=== PATIENT | male | born 1950 | race Caucasian/White ===

== ENCOUNTER 2018-06-25 05:24 | Inpatient (IN) | payer MEDICARE, BC ==
[~2018-06-25] VITALS: Ht 182.9 cm; Wt 105.3 kg
[~2018-06-25 05:24] MED LIST: FLUT16SP18 NS; MIRT15TA8 PO; PANT40TA4 PO; SODI104S3 NS; TAMS0.4C32 PO; TEMA15CA PO
[2018-06-25 05:50] LABS: BASOPHILS % (AUTO) 0.6 % (0-1); EOSINOPHILS # (AUTO) 0.1 X10'3 (0-0.9); EOSINOPHILS % (AUTO) 1.5 % (0-6); HEMATOCRIT 42.3 % (42.0-52.0); HEMOGLOBIN 14.4 g/dl (14.0-17.9); LYMPHOCYTES # (AUTO) 1.2 X10'3 (1.1-4.8); LYMPHOCYTES % (AUTO) 26.7 % (21-51); MEAN CORPUSCULAR HEMOGLOBIN 31.1 PG (27.0-31.0); MEAN CORPUSCULAR HGB CONC 34.1 g/dL (33.0-36.5); MEAN CORPUSCULAR VOLUME 91.3 FL (78-98); MEAN PLATELET VOLUME 8.3 FL (7.4-10.4); MONOCYTES # (AUTO) 0.5 X10'3 (0-0.9); MONOCYTES % (AUTO) 12.1 % (2-12); NEUTROPHILS # (AUTO) 2.6 X10'3 (1.8-7.7); NEUTROPHILS % (AUTO) 59.1 % (42-75); PLATELET COUNT 196 X10'3 (140-440); RED BLOOD COUNT 4.63 X10'6 (4.70-6.10); RED CELL DISTRIBUTION WIDTH 14.1 % (11.5-14.5); WHITE BLOOD COUNT 4.4 X10'3 (4.5-11.0)
[2018-06-25 06:06] LABS: ANION GAP 8 (8-16); BLOOD UREA NITROGEN 21 MG/DL (7-18); BUN/CREATININE RATIO 17.4 (5.4-32.0); CHLORIDE 109 MMOL/L (99-107); CREATININE 1.21 MG/DL (0.60-1.10); GLUCOSE 107 MG/DL (70-104); POTASSIUM 3.9 MMOL/L (3.5-5.1); SODIUM 143 MMOL/L (135-145); TOTAL CARBON DIOXIDE 25.6 MMOL/L (24-32)
[2018-06-25 06:07] LABS: ALANINE AMINOTRANSFERASE 22 U/L (12-78); ALBUMIN 3.4 G/DL (3.4-5.0); ALBUMIN/GLOBULIN RATIO 1.4 (1.1-1.5); ALKALINE PHOSPHATASE 42 IU/L (46-116); ASPARTATE AMINO TRANSFERASE 16 U/L (10-37); BILIRUBIN,TOTAL 0.2 MG/DL (0.1-1.0); CALCIUM 8.9 MG/DL (8.5-10.1); TOTAL PROTEIN 5.8 G/DL (6.4-8.2); eGFR 60 ML/MIN
[2018-06-25 06:08] LABS: PROTHROMBIN TIME 10.2 SECONDS (9.0-12.0)
[2018-06-25 06:09] LABS: PARTIAL THROMBOPLASTIN TIME 31 SECONDS (22-32)
[2018-06-25] MEDS ORDERED: diltiazem-D5W 125mg/125ml 125 ML IV ONE (06:19)
[2018-06-25] MEDS ORDERED: diltiazem 5mg/ml 5ml inj. IV ONE ×2 (06:20→07:00)
[2018-06-25] MEDS ORDERED: enoxaparin 100mg/ml syringe SUBCUT ONE (06:25)
[2018-06-25] MEDS ORDERED: PRE1T PO (08:16)
[2018-06-25] MEDS ORDERED: GABA-532 PO (08:16)
[2018-06-25] MEDS ORDERED: PRED5TAB49 PO (08:16)
[2018-06-25] MEDS ORDERED: aspirin 81mg tab.chew PO STA (10:48)
[2018-06-25] MEDS ORDERED: ondansetron/PF 4mg/2ml inj IV PRN (10:50)
[2018-06-25] MEDS ORDERED: diphenhydrAMINE 25mg capsule PO PRN (10:50)
[2018-06-25] MEDS ORDERED: magnesium hydroxide 30ml (MOM) UD suspension PO PRN (10:50)
[2018-06-25] MEDS ORDERED: magnesium 4gm in 100ml NS 100 ML IV PRN (10:50)
[2018-06-25] MEDS: enoxaparin 100mg/ml syringe SUBCUT SCH ×2 (10:50→20:01)
[2018-06-25] MEDS ORDERED: HYDROcodone/acetaminophen 5mg/325mg tablet PO PRN (10:50)
[2018-06-25] MEDS ORDERED: mag hydrox/Alum hydrox/simeth 30ml oral suspension PO PRN (10:50)
[2018-06-25] MEDS ORDERED: nitroGLYCERIN 0.4mg SUBLingual tab SL PRN ×2 (10:50→22:55)
[2018-06-25] MEDS ORDERED: acetaminophen 325mg tablet PO PRN ×2 (10:50)
[2018-06-25] MEDS ORDERED: morphine 4 MG/ML inj SYRINge IV PRN ×2 (10:50)
[2018-06-25] MEDS: K and/or MAG REPLACEMENT MC SCH (10:50)
[2018-06-25] MEDS ORDERED: magnesium 2GM in 50ml NS 50 ML IV PRN (10:50)
[2018-06-25] MEDS ORDERED: potassium Cl 20 mEq SR tablet PO PRN ×2 (10:50)
[2018-06-25] MEDS ORDERED: HYDROcodone/acetaminophen 10/325mg tab PO PRN (10:50)
[2018-06-25] MEDS ORDERED: magnesium Cl slow-release 64mg tablet PO PRN (10:50)
[2018-06-25] MEDS ORDERED: potassium Cl 40MEQ/NS 500ml 500 ML IV PRN ×2 (10:50)
[2018-06-25] MEDS: atorvastatin 20mg tablet PO SCH (11:10)
[2018-06-25] MEDS: normal saline 1000ml 1,000 ML IV SCH ×2 (11:11→21:56)
[2018-06-25 11:27] LABS: HEMOGLOBIN A1C 5.4 % (4.5-6.2)
--- NOTE | 2018-06-25 11:53 | NUR ---
PT PLACED ON HOSPITAL BED.
--- NOTE | 2018-06-25 14:30 | NUR ---
New admit arrived to unit in stable condition. Cardizem drip infusing at 5mg/hr, pt placed on bedside monitor. Pt oriented to room. Needs addressed. 2 RN skin check completed. Bed is low/locked/SRx2, call light in reach.
--- NOTE | 2018-06-25 16:00 | NUR ---
PAGER ID: [phone] MESSAGE: Ariana JALLOH [phone] [id number] Justo GONZALEZ admit on Cardizem drip @5 currently in SR with a HR in the low 60s and BP of 116/63. Do you still want the Cardizem drip running?
[2018-06-25 19:00] VITALS: BP 116/62
[2018-06-25 20:00] VITALS: BP 126/50
[2018-06-25] MEDS: gabapentin 300mg capsule PO SCH (20:00)
[2018-06-25] MEDS ORDERED: carVEDilol 3.125mg tablet PO SCH (20:00)
[2018-06-25] MEDS: carVEDilol 12.5mg tablet PO SCH (20:01)
[2018-06-25] MEDS ORDERED: temazepam 15mg capsule PO PRN (21:00)
[2018-06-25] MEDS ORDERED: metoprolol tartrate 1mg/ml inj IV PRN (22:55)
[2018-06-25] MEDS ORDERED: aminophylline 250mg/10ml inj. IV PRN (22:55)
[2018-06-25] MEDS ORDERED: regadenoson 0.4mg/5ml syringe IV ONE (22:55)
[2018-06-25 23:00] VITALS: BP 128/85
[2018-06-26] VITALS (17 sets, daily range): BP systolic 116–163; BP diastolic 53–95
[2018-06-26 01:21] LABS: CLARITY,URINE CLEAR (Clear); COLOR,URINE YELLOW (Yellow); GLUCOSE, URINE NEGATIVE (Neg); KETONES,URINE NEGATIVE (Neg); LEUKOCYTE ESTERASE ,URINE NEGATIVE (Neg); NITRITES, URINE NEGATIVE (Neg); OCCULT BLOOD,URINE NEGATIVE (Neg); PH,URINE 6.5 (4.8-8.0); PROTEIN,URINE NEGATIVE (Neg); UROBILINOGEN,URINE 0.2 E.U/dL (0.2-1.0)
[2018-06-26 01:22] LABS: UA COLLECTION TYPE CLN CATCH MIDSTREAM
[2018-06-26 05:55] LABS: BASOPHILS % (AUTO) 0.4 % (0-1); EOSINOPHILS # (AUTO) 0.1 X10'3 (0-0.9); EOSINOPHILS % (AUTO) 1.5 % (0-6); HEMATOCRIT 37.9 % (42.0-52.0); HEMOGLOBIN 12.8 g/dl (14.0-17.9); LYMPHOCYTES # (AUTO) 0.8 X10'3 (1.1-4.8); LYMPHOCYTES % (AUTO) 23.5 % (21-51); MEAN CORPUSCULAR HEMOGLOBIN 30.9 PG (27.0-31.0); MEAN CORPUSCULAR HGB CONC 33.8 g/dL (33.0-36.5); MEAN CORPUSCULAR VOLUME 91.4 FL (78-98); MEAN PLATELET VOLUME 8.6 FL (7.4-10.4); MONOCYTES # (AUTO) 0.4 X10'3 (0-0.9); MONOCYTES % (AUTO) 11.1 % (2-12); NEUTROPHILS # (AUTO) 2.3 X10'3 (1.8-7.7); NEUTROPHILS % (AUTO) 63.5 % (42-75); PLATELET COUNT 164 X10'3 (140-440); RED BLOOD COUNT 4.14 X10'6 (4.70-6.10); RED CELL DISTRIBUTION WIDTH 13.7 % (11.5-14.5); WHITE BLOOD COUNT 3.6 X10'3 (4.5-11.0)
--- NOTE | 2018-06-26 06:03 | NUR ---
Problems reprioritized. Patient report given, questions answered & plan of care reviewed with Ariana JALLOH & Odette JALLOH.
[2018-06-26 06:07] LABS: ALANINE AMINOTRANSFERASE 24 U/L (12-78); ALBUMIN 2.9 G/DL (3.4-5.0); ALBUMIN/GLOBULIN RATIO 1.3 (1.1-1.5); ALKALINE PHOSPHATASE 25 IU/L (46-116); ANION GAP 7 (8-16); ASPARTATE AMINO TRANSFERASE 13 U/L (10-37); BILIRUBIN,TOTAL 0.3 MG/DL (0.1-1.0); BLOOD UREA NITROGEN 19 MG/DL (7-18); BUN/CREATININE RATIO 15.1 (5.4-32.0); CALCIUM 8.1 MG/DL (8.5-10.1); CHLORIDE 110 MMOL/L (99-107); CHOL/HDL RATIO 4.2 (0.00-4.99); CHOLESTEROL 177 MG/DL (0-200); CREATININE 1.26 MG/DL (0.60-1.10); GLUCOSE 89 MG/DL (70-104); HDL CHOLESTEROL 42 MG/DL (35-60); LDL CHOLESTEROL 123 MG/DL (50-100); MAGNESIUM 1.9 MG/DL (1.5-2.4); POTASSIUM 4.3 MMOL/L (3.5-5.1); SODIUM 145 MMOL/L (135-145); TOTAL CARBON DIOXIDE 28.3 MMOL/L (24-32); TOTAL PROTEIN 5.1 G/DL (6.4-8.2); TRIGLYCERIDES 139 MG/DL (20-135); eGFR 57 ML/MIN
--- NOTE | 2018-06-26 06:22 | NUR ---
Patient in room PCU 3012. I have received report from YEIMI Fernando and had the opportunity to ask questions and assume patient care.
[2018-06-26] MEDS: levoTHYROXINE 25mcg tablet PO SCH ×2 (07:00→16:49)
[2018-06-26] MEDS: gabapentin 300mg capsule PO SCH ×2 (07:55→19:38)
[2018-06-26] MEDS: enoxaparin 100mg/ml syringe SUBCUT SCH (07:55)
[2018-06-26] MEDS: atorvastatin 20mg tablet PO SCH (07:56)
[2018-06-26] MEDS: fluticasone nasal spray 16GM bottle NS SCH (07:58)
[2018-06-26] MEDS: aspirin 81mg tablet.DR PO SCH (07:58)
[2018-06-26] MEDS ORDERED: predniSONE 1 mg tablet PO SCH (08:00)
[2018-06-26] MEDS: lisinopril 5mg tablet PO SCH (08:00)
[2018-06-26] MEDS: K and/or MAG REPLACEMENT MC SCH (08:00)
[2018-06-26] MEDS: carVEDilol 12.5mg tablet PO SCH ×2 (08:00→19:38)
[2018-06-26] MEDS: normal saline 1000ml 1,000 ML IV SCH ×3 (08:33→21:39)
--- NOTE | 2018-06-26 09:24 | NUR ---
Pt transferred off unit for procedure in stable condition, via wheelchair. Pt not on the floor.
[2018-06-26] MEDS ORDERED: regadenoson 0.4mg/5ml syringe IV ONE (09:53)
[2018-06-26] MEDS ORDERED: aminophylline inj. 10 ML IV ONE (09:53)
--- NOTE | 2018-06-26 10:55 | NUR ---
Pt returned to unit, VS stable, pt denies c/o pain. Pt reattached to color television console monitor. Bed is low/locked/SRx2, call light in reach. Will continue to monitor.
--- NOTE | 2018-06-26 12:36 | NUR ---
PAGER ID: [phone] MESSAGE: YIEMI Pino [id number]. [id number] Jeff Kemp lexi scan resulted. Keep NPO?
[2018-06-26] MEDS ORDERED: predniSONE 5mg tablet PO ONE (16:10)
[2018-06-26] MEDS ORDERED: predniSONE 1 mg tablet PO ONE (16:25)
--- NOTE | 2018-06-26 17:00 | NUR ---
Pt refused now dose of prednisone, states that it is too close to next dose, wants to take now dose tomorrow.
--- NOTE | 2018-06-26 18:15 | NUR ---
Patient in room PCU 3016. I have received report from Ariana JALLOH & Odette JALLOH and had the opportunity to ask questions and assume patient care.
--- NOTE | 2018-06-26 18:32 | NUR ---
Problems reprioritized. Patient report given, questions answered & plan of care reviewed with Anay JALLOH. Pt. alert and in no distress at this time.
[2018-06-26] MEDS: enoxaparin 40mg/0.4ml syringe SUBCUT SCH (19:37)
[2018-06-27] VITALS (15 sets, daily range): BP systolic 96–143; BP diastolic 54–80
--- NOTE | 2018-06-27 06:00 | NUR ---
Patient in room PCU 3016. I have received report from YEIMI Fernando and had the opportunity to ask questions and assume patient care.
--- NOTE | 2018-06-27 06:06 | NUR ---
Problems reprioritized. Patient report given, questions answered & plan of care reviewed with Yuki JALLOH & Odette JALLOH.
[2018-06-27 06:36] LABS: BASOPHILS % (AUTO) 0.5 % (0-1); EOSINOPHILS % (AUTO) 1.4 % (0-6); HEMATOCRIT 37.6 % (42.0-52.0); LYMPHOCYTES # (AUTO) 0.7 X10'3 (1.1-4.8); LYMPHOCYTES % (AUTO) 20.6 % (21-51); MEAN CORPUSCULAR HEMOGLOBIN 31.3 PG (27.0-31.0); MEAN CORPUSCULAR HGB CONC 34.5 g/dL (33.0-36.5); MEAN CORPUSCULAR VOLUME 90.7 FL (78-98); MEAN PLATELET VOLUME 8.5 FL (7.4-10.4); MONOCYTES # (AUTO) 0.5 X10'3 (0-0.9); MONOCYTES % (AUTO) 14.6 % (2-12); NEUTROPHILS # (AUTO) 2.1 X10'3 (1.8-7.7); NEUTROPHILS % (AUTO) 62.9 % (42-75); PLATELET COUNT 156 X10'3 (140-440); RED BLOOD COUNT 4.15 X10'6 (4.70-6.10); RED CELL DISTRIBUTION WIDTH 13.9 % (11.5-14.5); WHITE BLOOD COUNT 3.4 X10'3 (4.5-11.0)
[2018-06-27 06:50] LABS: ALANINE AMINOTRANSFERASE 24 U/L (12-78); ALBUMIN/GLOBULIN RATIO 1.3 (1.1-1.5); ALKALINE PHOSPHATASE 25 IU/L (46-116); ANION GAP 8 (8-16); ASPARTATE AMINO TRANSFERASE 17 U/L (10-37); BILIRUBIN,TOTAL 0.4 MG/DL (0.1-1.0); BLOOD UREA NITROGEN 20 MG/DL (7-18); BUN/CREATININE RATIO 16.3 (5.4-32.0); CALCIUM 8.5 MG/DL (8.5-10.1); CHLORIDE 109 MMOL/L (99-107); CREATININE 1.23 MG/DL (0.60-1.10); GLUCOSE 92 MG/DL (70-104); PHOSPHORUS 3.8 MG/DL (2.3-4.5); POTASSIUM 4.4 MMOL/L (3.5-5.1); SODIUM 144 MMOL/L (135-145); TOTAL CARBON DIOXIDE 27.5 MMOL/L (24-32); TOTAL PROTEIN 5.3 G/DL (6.4-8.2); eGFR 59 ML/MIN
[2018-06-27] MEDS: enoxaparin 40mg/0.4ml syringe SUBCUT SCH ×2 (07:48→19:29)
[2018-06-27] MEDS: atorvastatin 20mg tablet PO SCH (07:49)
[2018-06-27] MEDS: lisinopril 5mg tablet PO SCH (07:50)
[2018-06-27] MEDS: gabapentin 300mg capsule PO SCH ×2 (07:50→19:25)
[2018-06-27] MEDS: aspirin 81mg tablet.DR PO SCH (07:51)
[2018-06-27] MEDS: carVEDilol 12.5mg tablet PO SCH ×2 (07:51→19:28)
[2018-06-27] MEDS: fluticasone nasal spray 16GM bottle NS SCH (07:53)
[2018-06-27] MEDS: normal saline 1000ml 1,000 ML IV SCH ×2 (07:55→19:24)
[2018-06-27] MEDS ORDERED: predniSONE 1 mg tablet PO SCH ×2 (08:00)
[2018-06-27] MEDS: K and/or MAG REPLACEMENT MC SCH (08:00)
[2018-06-27] MEDS ORDERED: predniSONE 5mg tablet PO SCH (08:00)
--- NOTE | 2018-06-27 10:12 | NUR ---
Contacted Dr. Davalos's answering service regarding patient wanting to talk to him about specific risks to the cardiac catheterization procedure scheduled for this morning, awaiting call back. Addendum: 06/27/18 at 1017 by Deya Vegas RN Patient wants to talk to Dr Davalos regarding risks of procedure before he signs the consent.
--- NOTE | 2018-06-27 10:25 | NUR ---
Dr Davalos contacted unit regarding patient's request, transferred to patient's room to discuss risks of procedure with patient via telephone. Pt verbalized understanding and signed consent for procedure.
[2018-06-27] MEDS ORDERED: LIDOcaine 1% (10mg/ml)w/preservative injection 20ml MDV ONE (11:24)
[2018-06-27] MEDS ORDERED: iohexol 350 MG/ML 50ML vial IV ONE (11:24)
[2018-06-27] MEDS ORDERED: iohexol 350MG/ML 100ml bottle IV ONE (11:24)
--- NOTE | 2018-06-27 11:46 | NUR ---
Pt transported to [facility] via wheelchair in stable condition, pt off floor now.
[2018-06-27] MEDS ORDERED: proCHLORperazine 10 MG/2 ml inj ONE (11:53)
[2018-06-27] MEDS ORDERED: fentaNYL/PF 50MCG/1 ML 2ML syringe ONE (11:53)
[2018-06-27] MEDS ORDERED: midazolam 2 mg/2 ml injection ONE (11:53)
[2018-06-27] MEDS ORDERED: diphenhydrAMINE 50 mg/ml inj ONE (11:56)
--- NOTE | 2018-06-27 13:20 | NUR ---
Pt returned to floor, VS stable, pt drowsy, reminded patient to remain flat and to not move right leg. Pt verbalizes understanding.
--- NOTE | 2018-06-27 18:00 | NUR ---
Problems reprioritized. Patient report given, questions answered & plan of care reviewed with YEIMI Fernando.
--- NOTE | 2018-06-27 18:05 | NUR ---
Patient in room PCU 3016. I have received report from Tiny JALLOH & Odette JALLOH and had the opportunity to ask questions and assume patient care.
--- NOTE | 2018-06-27 19:04 | NUR ---
Agreed with RNDeya, assessment and nursing interventions.
[2018-06-28 03:00] VITALS: BP 113/56
[2018-06-28] MEDS: normal saline 1000ml 1,000 ML IV SCH (04:29)
[2018-06-28 06:00] VITALS: BP 121/71
--- NOTE | 2018-06-28 06:07 | NUR ---
Problems reprioritized. Patient report given, questions answered & plan of care reviewed with uSzy JALLOH.
[2018-06-28 07:23] LABS: BASOPHILS % (AUTO) 0.3 % (0-1); EOSINOPHILS # (AUTO) 0.1 X10'3 (0-0.9); EOSINOPHILS % (AUTO) 1.6 % (0-6); HEMOGLOBIN 12.9 g/dl (14.0-17.9); LYMPHOCYTES # (AUTO) 0.7 X10'3 (1.1-4.8); LYMPHOCYTES % (AUTO) 19.5 % (21-51); MEAN CORPUSCULAR HGB CONC 33.9 g/dL (33.0-36.5); MEAN CORPUSCULAR VOLUME 91.4 FL (78-98); MEAN PLATELET VOLUME 8.5 FL (7.4-10.4); MONOCYTES # (AUTO) 0.4 X10'3 (0-0.9); MONOCYTES % (AUTO) 11.9 % (2-12); NEUTROPHILS # (AUTO) 2.4 X10'3 (1.8-7.7); NEUTROPHILS % (AUTO) 66.7 % (42-75); PLATELET COUNT 163 X10'3 (140-440); RED BLOOD COUNT 4.16 X10'6 (4.70-6.10); WHITE BLOOD COUNT 3.5 X10'3 (4.5-11.0)
[2018-06-28] MEDS: aspirin 81mg tablet.DR PO SCH (07:27)
[2018-06-28] MEDS: gabapentin 300mg capsule PO SCH (07:27)
[2018-06-28] MEDS: lisinopril 5mg tablet PO SCH (07:27)
[2018-06-28] MEDS: atorvastatin 20mg tablet PO SCH (07:27)
[2018-06-28] MEDS: fluticasone nasal spray 16GM bottle NS SCH (07:27)
[2018-06-28] MEDS: carVEDilol 12.5mg tablet PO SCH (07:27)
[2018-06-28] MEDS: levoTHYROXINE 25mcg tablet PO SCH (07:27)
[2018-06-28] MEDS: enoxaparin 40mg/0.4ml syringe SUBCUT SCH (07:29)
[2018-06-28 07:43] LABS: ALANINE AMINOTRANSFERASE 32 U/L (12-78); ALBUMIN 3.1 G/DL (3.4-5.0); ALBUMIN/GLOBULIN RATIO 1.3 (1.1-1.5); ALKALINE PHOSPHATASE 26 IU/L (46-116); ANION GAP 6 (8-16); ASPARTATE AMINO TRANSFERASE 23 U/L (10-37); BILIRUBIN,TOTAL 0.4 MG/DL (0.1-1.0); BLOOD UREA NITROGEN 18 MG/DL (7-18); BUN/CREATININE RATIO 16.1 (5.4-32.0); CALCIUM 8.5 MG/DL (8.5-10.1); CHLORIDE 109 MMOL/L (99-107); CREATININE 1.12 MG/DL (0.60-1.10); GLUCOSE 79 MG/DL (70-104); MAGNESIUM 1.9 MG/DL (1.5-2.4); PHOSPHORUS 3.4 MG/DL (2.3-4.5); SODIUM 143 MMOL/L (135-145); TOTAL CARBON DIOXIDE 28.1 MMOL/L (24-32); TOTAL PROTEIN 5.4 G/DL (6.4-8.2); eGFR 65 ML/MIN
[2018-06-28] MEDS ORDERED: prednisone 10mg tablet PO SCH (08:00)
[2018-06-28] MEDS: K and/or MAG REPLACEMENT MC SCH (08:00)
[2018-06-28] MEDS ORDERED: predniSONE 1 mg tablet PO SCH (08:00)
[2018-06-28] MEDS ORDERED: CARV-50 PO (10:13)
[2018-06-28] MEDS ORDERED: ASPI-1071 PO (10:13)
[2018-06-28] MEDS ORDERED: LISI-642 PO (10:13)
[2018-06-28] MEDS ORDERED: APIX5TAB3 PO (10:13)
[2018-06-28] MEDS ORDERED: LEVO25TA7 PO (10:13)
[2018-06-28] MEDS ORDERED: ATOR20TA66 PO (10:13)
[2018-06-28 11:00] VITALS: BP 130/78
--- NOTE | 2018-06-28 11:55 | NUR ---
Discharge instructions given to pt. Jovan dawkins called into [facility] Pt. awaiting ride home .
--- NOTE | 2018-06-28 13:05 | NUR ---
Pt. not in room. Apparently pt. left without alerting staff. Charge nurse aware.
== END 2018-06-28 13:05 | disposition home or self-care (01) | DRG 280 ==
LOC: ER 05:25 → ED HOLD 07:07 → PCU 3S 14:30
PROVIDERS: ADMIT Family Medicine; ATTEND Family Medicine
PROC: 4A02XM4 Measurement of Cardiac Total Activity, External Approach (ICD-10-PCS; 2018-06-26)
PROC: 3E033HZ Introduction of Radioactive Substance into Peripheral Vein, Percutaneous Approach (ICD-10-PCS; 2018-06-26)
PROC: 4A023N7 Measurement of Cardiac Sampling and Pressure, Left Heart, Percutaneous Approach (ICD-10-PCS; principal; 2018-06-27)
PROC: B2111ZZ Fluoroscopy of Multiple Coronary Arteries using Low Osmolar Contrast (ICD-10-PCS; 2018-06-27)
PROC: B2151ZZ Fluoroscopy of Left Heart using Low Osmolar Contrast (ICD-10-PCS; 2018-06-27)
DX: I48.0 Paroxysmal atrial fibrillation (principal); I21.A1 Myocardial infarction type 2; G04.81 Other encephalitis and encephalomyelitis; N17.9 Acute kidney failure, unspecified; Z60.2 Problems related to living alone; E86.0 Dehydration; E78.5 Hyperlipidemia, unspecified; G25.81 Restless legs syndrome; I25.10 Atherosclerotic heart disease of native coronary artery without angina pectoris; Z90.49 Acquired absence of other specified parts of digestive tract; Z79.01 Long term (current) use of anticoagulants; Z79.52 Long term (current) use of systemic steroids; Z79.890 Hormone replacement therapy; Z79.899 Other long term (current) drug therapy; Z82.3 Family history of stroke; Z82.49 Family history of ischemic heart disease and other diseases of the circulatory system
CPT/HCPCS: 36415; 71045; 78452; 80053; 80061; 81003; 83036; 83735; 83880; 84100; 84443; 84484; 85025; 85610; 85730; 87070; 93005; 93017; 93306; 93458; 96372; 96374; 99152; 99153; 99285; A4620; A6257; A9500; C1760; C1769; G0378; J0280; J0780; J1200; J1644; J1650; J2001; J2250; J3010; J3490; J7030; J7512; Q9967

== ENCOUNTER 2018-12-07 22:12 | Inpatient (IN) | payer MEDICARE, BC ==
[~2018-12-07] VITALS: Ht 182.9 cm; Wt 95.5 kg
[~2018-12-07 22:12] MED LIST changes: +APIX5TAB3 PO; +ASPI-1071 PO; +ATOR20TA66 PO; +CARV-50 PO; +GABA-532 PO; +LEVO25TA7 PO; +LISI-642 PO; -MIRT15TA8 PO; -PANT40TA4 PO; +PRE1T PO; +PRED5TAB49 PO; -SODI104S3 NS; -TAMS0.4C32 PO; -TEMA15CA PO
[2018-12-07] MEDS ORDERED: methylPREDNISolone sod succ 125mg/2ml vial IV ONE (23:00)
[2018-12-07] MEDS ORDERED: normal saline 1000ML IV soln IVB ONE (23:00)
[2018-12-07] MEDS ORDERED: ipratropium/albuterol 3ml nebule NEB ONE (23:00)
[2018-12-07 23:37] LABS: BASOPHILS % (AUTO) 0.1 % (0-1); EOSINOPHILS % (AUTO) 0.1 % (0-6); HEMOGLOBIN 12.1 g/dl (14.0-17.9); LYMPHOCYTES # (AUTO) 0.7 X10'3 (1.1-4.8); LYMPHOCYTES % (AUTO) 7.7 % (21-51); MEAN CORPUSCULAR HEMOGLOBIN 31.2 PG (27.0-31.0); MEAN CORPUSCULAR HGB CONC 33.5 g/dL (33.0-36.5); MEAN PLATELET VOLUME 8.3 FL (7.4-10.4); MONOCYTES # (AUTO) 0.6 X10'3 (0-0.9); MONOCYTES % (AUTO) 7.5 % (2-12); NEUTROPHILS # (AUTO) 7.3 X10'3 (1.8-7.7); NEUTROPHILS % (AUTO) 84.6 % (42-75); PLATELET COUNT 178 X10'3 (140-440); RED BLOOD COUNT 3.87 X10'6 (4.70-6.10); RED CELL DISTRIBUTION WIDTH 15.7 % (11.5-14.5); WHITE BLOOD COUNT 8.6 X10'3 (4.5-11.0)
[2018-12-07 23:47] LABS: ALANINE AMINOTRANSFERASE 23 U/L (12-78); ALBUMIN 3.3 G/DL (3.4-5.0); ALBUMIN/GLOBULIN RATIO 1.2 (1.1-1.5); ALKALINE PHOSPHATASE 22 IU/L (46-116); ANION GAP 11 (8-16); ASPARTATE AMINO TRANSFERASE 14 U/L (10-37); BILIRUBIN,TOTAL 0.4 MG/DL (0.1-1.0); BLOOD UREA NITROGEN 19 MG/DL (7-18); BUN/CREATININE RATIO 16.7 (5.4-32.0); CALCIUM 8.5 MG/DL (8.5-10.1); CHLORIDE 109 MMOL/L (99-107); CREATININE 1.14 MG/DL (0.60-1.10); GLUCOSE 138 MG/DL (70-104); POTASSIUM 3.8 MMOL/L (3.5-5.1); SODIUM 143 MMOL/L (135-145); TOTAL CARBON DIOXIDE 22.9 MMOL/L (24-32); TOTAL PROTEIN 6.1 G/DL (6.4-8.2); eGFR 64 ML/MIN
[2018-12-07] MEDS ORDERED: magnesium hydroxide 30ml (MOM) UD suspension PO PRN (23:50)
[2018-12-07] MEDS ORDERED: magnesium 2GM in 50ml NS 50 ML IV PRN (23:50)
[2018-12-07] MEDS ORDERED: acetaminophen 325mg tablet PO PRN ×2 (23:50)
[2018-12-07] MEDS ORDERED: magnesium 4gm in 100ml NS 100 ML IV PRN (23:50)
[2018-12-07] MEDS ORDERED: mag hydrox/Alum hydrox/simeth 30ml oral suspension PO PRN (23:50)
[2018-12-07] MEDS ORDERED: potassium CL 10mEq/100ml bag 100 ML IV PRN ×2 (23:50)
[2018-12-07] MEDS ORDERED: ondansetron/PF 4mg/2ml inj IV PRN (23:50)
[2018-12-07] MEDS ORDERED: potassium Cl 20 mEq SR tablet PO PRN ×2 (23:50)
[2018-12-07] MEDS ORDERED: magnesium Cl slow-release 64mg tablet PO PRN (23:50)
--- NOTE | 2018-12-08 00:17 | NUR ---
PT RESTING COMFORTABLY ALL VSS NO S/S OF RESP DISTRESS. IV INFUSING WITH NS TO THE L AC PATENT WITHOUT INCIDENT. UPDATED POC . AWAITING ROOM ASSIGNMENT
--- NOTE | 2018-12-08 00:28 | NUR ---
PER MARCIO LANCASTER, PT'S REMAINING 2 STICHES TO BE REMOVED AND REPLACED WITH STERI-STRIPS.
--- NOTE | 2018-12-08 00:34 | NUR ---
STITCHES REMOVED, ABX OINTENT AND STERI-STRIPS PLACED. PTW.
[2018-12-08] MEDS ORDERED: METO-395 PO (00:57)
[2018-12-08] MEDS ORDERED: LORA-835 PO (00:59)
[2018-12-08] MEDS ORDERED: PRED5TAB PO (01:17)
[2018-12-08] MEDS ORDERED: FISH12002 PO (01:18)
[2018-12-08] MEDS ORDERED: ASCO500C15 PO (01:23)
[2018-12-08] MEDS ORDERED: CALC-331 (01:23)
[2018-12-08] MEDS ORDERED: VITA400C65 PO (01:23)
[2018-12-08 01:30] VITALS: BP 136/75
--- NOTE | 2018-12-08 01:30 | NUR ---
0105 YEIMI Marks gave me report on patient. Plan of care discussed, I had the opportunity to ask questions. Patient arrived via wheelchair transported by patient medicare contact specialist with his belongings. ALOx4, in no apparent distress. Will continue to monitor.
[2018-12-08 05:21] LABS: BASOPHILS % (AUTO) 0.1 % (0-1); EOSINOPHILS % (AUTO) 0 % (0-6); HEMATOCRIT 33.1 % (42.0-52.0); HEMOGLOBIN 11.1 g/dl (14.0-17.9); LYMPHOCYTES # (AUTO) 0.1 X10'3 (1.1-4.8); LYMPHOCYTES % (AUTO) 2.2 % (21-51); MEAN CORPUSCULAR HEMOGLOBIN 31.2 PG (27.0-31.0); MEAN CORPUSCULAR HGB CONC 33.6 g/dL (33.0-36.5); MEAN CORPUSCULAR VOLUME 92.8 FL (78-98); MEAN PLATELET VOLUME 8.4 FL (7.4-10.4); MONOCYTES # (AUTO) 0.1 X10'3 (0-0.9); MONOCYTES % (AUTO) 1.4 % (2-12); NEUTROPHILS # (AUTO) 4.6 X10'3 (1.8-7.7); NEUTROPHILS % (AUTO) 96.3 % (42-75); PLATELET COUNT 130 X10'3 (140-440); RED BLOOD COUNT 3.57 X10'6 (4.70-6.10); RED CELL DISTRIBUTION WIDTH 15.6 % (11.5-14.5); WHITE BLOOD COUNT 4.8 X10'3 (4.5-11.0)
[2018-12-08 05:31] LABS: ANION GAP 11 (8-16); BLOOD UREA NITROGEN 17 MG/DL (7-18); BUN/CREATININE RATIO 13.9 (5.4-32.0); CALCIUM 8.4 MG/DL (8.5-10.1); CHLORIDE 110 MMOL/L (99-107); CREATININE 1.22 MG/DL (0.60-1.10); GLUCOSE 226 MG/DL (70-104); POTASSIUM 4.1 MMOL/L (3.5-5.1); SODIUM 143 MMOL/L (135-145); TOTAL CARBON DIOXIDE 22.2 MMOL/L (24-32); eGFR 59 ML/MIN
--- NOTE | 2018-12-08 06:30 | NUR ---
Problems reprioritized. Patient report given, questions answered & plan of care reviewed with YEIMI Clemens.
[2018-12-08] MEDS: levoTHYROXINE 25mcg tablet PO SCH (07:31)
[2018-12-08] MEDS: apixaban 5mg tablet PO SCH ×2 (07:32→20:12)
[2018-12-08] MEDS: ascorbic acid 500mg tablet PO SCH (07:32)
[2018-12-08] MEDS: lactobacillus rhamnosus 10,000 MMU CELLS/CAPSULE PO SCH (07:32)
[2018-12-08] MEDS: predniSONE 20 mg tablet PO SCH (07:32)
[2018-12-08] MEDS: cefepime 1GM/NS ADD-VANTAGE 100 ML IV SCH ×2 (07:33→20:01)
[2018-12-08 08:00] VITALS: BP 114/49
[2018-12-08] MEDS ORDERED: non-formulary drug (Fish Oil/Borage/Flax/Om3,6,9#1 (Omega 3-6-9 1,200 mg Softgel) 1 CAP) PO SCH (08:00)
[2018-12-08] MEDS: fluticasone nasal spray 16GM bottle NS SCH (08:00)
[2018-12-08] MEDS ORDERED: calcium carbonate 500mg tablet PO SCH (08:00)
[2018-12-08] MEDS: K and/or MAG REPLACEMENT MC SCH (08:00)
[2018-12-08] MEDS: loratadine/pseudoephedrine TAB.SR.12Hour PO SCH ×2 (08:00→20:00)
[2018-12-08] MEDS: ipratropium/albuterol 3ml nebule NEB SCH ×3 (08:52→21:00)
[2018-12-08] MEDS: azithromycin/NS 500mg/250ml 250 ML IV SCH (08:58)
--- NOTE | 2018-12-08 18:30 | NUR ---
Patient in room MAX 341. I have received report from Jayleen JALLOH and had the opportunity to ask questions and assume patient care. Patient resting in bed, finished with dinner, son Dr. Kemp at bedside. Will continue to monitor.
[2018-12-08 19:00] VITALS: BP 130/59
[2018-12-08] MEDS: calcium carbonate 500mg tablet PO SCH (20:12)
[2018-12-08] MEDS ORDERED: metoprolol succinate 25mg (24-HOUR) SR. Tablet PO SCH (21:00)
[2018-12-08] MEDS ORDERED: loratadine 10mg tablet PO SCH (21:33)
--- NOTE | 2018-12-08 21:34 | NUR ---
Discussed with Dr. Haney that the patient would like to get claritin alone and no D and barking cough. Received orders for Robitussin and Mucinex PRN, and Claritin. Will continue to monitor.
[2018-12-08] MEDS ORDERED: guaiFENesin 200 MG/10 ML oral syrup UD cup PO PRN (21:40)
[2018-12-09] VITALS: BP 124/63
[2018-12-09 04:55] LABS: BASOPHILS % (AUTO) 0.1 % (0-1); EOSINOPHILS % (AUTO) 0.4 % (0-6); HEMATOCRIT 32.1 % (42.0-52.0); HEMOGLOBIN 10.9 g/dl (14.0-17.9); LYMPHOCYTES # (AUTO) 0.4 X10'3 (1.1-4.8); LYMPHOCYTES % (AUTO) 8.6 % (21-51); MEAN CORPUSCULAR HEMOGLOBIN 31.5 PG (27.0-31.0); MEAN CORPUSCULAR HGB CONC 34.1 g/dL (33.0-36.5); MEAN CORPUSCULAR VOLUME 92.2 FL (78-98); MEAN PLATELET VOLUME 7.9 FL (7.4-10.4); MONOCYTES # (AUTO) 0.4 X10'3 (0-0.9); MONOCYTES % (AUTO) 8.4 % (2-12); NEUTROPHILS # (AUTO) 4.3 X10'3 (1.8-7.7); NEUTROPHILS % (AUTO) 82.5 % (42-75); PLATELET COUNT 155 X10'3 (140-440); RED BLOOD COUNT 3.48 X10'6 (4.70-6.10); RED CELL DISTRIBUTION WIDTH 15.2 % (11.5-14.5); WHITE BLOOD COUNT 5.2 X10'3 (4.5-11.0)
[2018-12-09 05:31] LABS: ANION GAP 9 (8-16); BLOOD UREA NITROGEN 21 MG/DL (7-18); BUN/CREATININE RATIO 16.8 (5.4-32.0); CHLORIDE 111 MMOL/L (99-107); CREATININE 1.25 MG/DL (0.60-1.10); GLUCOSE 117 MG/DL (70-104); SODIUM 145 MMOL/L (135-145); TOTAL CARBON DIOXIDE 25.2 MMOL/L (24-32)
[2018-12-09 05:32] LABS: ALBUMIN 2.8 G/DL (3.4-5.0); CALCIUM 8.4 MG/DL (8.5-10.1); MAGNESIUM 2.1 MG/DL (1.5-2.4); eGFR 57 ML/MIN
--- NOTE | 2018-12-09 06:59 | NUR ---
Patient in room MAX 341. I have received report from Werner JALLOH and had the opportunity to ask questions and assume patient care.
[2018-12-09 07:00] VITALS: BP 151/67
[2018-12-09] MEDS: fluticasone nasal spray 16GM bottle NS SCH (08:00)
[2018-12-09] MEDS ORDERED: guaiFENesin ER 600mg tablet PO SCH (08:00)
[2018-12-09] MEDS: K and/or MAG REPLACEMENT MC SCH (08:00)
[2018-12-09] MEDS: ipratropium/albuterol 3ml nebule NEB SCH (08:13)
[2018-12-09] MEDS: levoTHYROXINE 25mcg tablet PO SCH (09:09)
[2018-12-09] MEDS: calcium carbonate 500mg tablet PO SCH (09:09)
[2018-12-09] MEDS: lactobacillus rhamnosus 10,000 MMU CELLS/CAPSULE PO SCH (09:09)
[2018-12-09] MEDS: cefepime 1GM/NS ADD-VANTAGE 100 ML IV SCH (09:09)
[2018-12-09] MEDS: ascorbic acid 500mg tablet PO SCH (09:09)
[2018-12-09] MEDS: apixaban 5mg tablet PO SCH (09:09)
[2018-12-09] MEDS: predniSONE 20 mg tablet PO SCH (09:10)
[2018-12-09] MEDS: azithromycin/NS 500mg/250ml 250 ML IV SCH (10:22)
[2018-12-09 11:00] VITALS: BP 116/54
[2018-12-09] MEDS ORDERED: CEFD300C3 PO (12:10)
[2018-12-09] MEDS ORDERED: AZIT500T2 PO (12:10)
[2018-12-09] MEDS ORDERED: FAMO-128 PO (13:16)
--- NOTE | 2018-12-09 14:00 | NUR ---
Left message on patients home voice mail to call re: medications Rx new that were left in the room. Also, left message on patients cell voicemail to call back re: medications left. Checked medications into pharmacy.
--- NOTE | 2018-12-09 14:27 | NUR ---
Patient discharge instructions reviewed with patient, patient verbalized understanding. Patients IV dc'd for discharge cannula intact. Patients medications were delivered at bedside by enriqueta. Patients home medications were retrieved from Pharmacy and given to patient. Patient states he has all belongings and was taken to lobby to wait for his ride
== END 2018-12-09 14:26 | disposition home or self-care (01) | DRG 194 ==
LOC: ER 22:13 → SUR 3N 12-08 01:28 → CMPBEDREQ 12-08 01:29
PROVIDERS: ADMIT Hospitalist; ATTEND Internal Medicine
DX: J18.1 Lobar pneumonia, unspecified organism (principal); R04.2 Hemoptysis; E78.5 Hyperlipidemia, unspecified; I10 Essential (primary) hypertension; I48.91 Unspecified atrial fibrillation; E03.9 Hypothyroidism, unspecified; Z86.73 Personal history of transient ischemic attack (TIA), and cerebral infarction without residual deficits; Z82.49 Family history of ischemic heart disease and other diseases of the circulatory system; Z79.01 Long term (current) use of anticoagulants; Z82.3 Family history of stroke; Z86.61 Personal history of infections of the central nervous system; T38.0X5A Adverse effect of glucocorticoids and synthetic analogues, initial encounter; Y92.89 Other specified places as the place of occurrence of the external cause
CPT/HCPCS: 36415; 71045; 80048; 80053; 83735; 85025; 87081; 93005; 94640; 94760; 96361; 96374; 99285; G0378; J0456; J0692; J2930; J7512

== ENCOUNTER 2019-05-24 12:32 | Emergency (ER) | payer MEDICARE, BC ==
[~2019-05-24] VITALS: Ht 182.9 cm; Wt 100.8 kg
[~2019-05-24 12:32] MED LIST changes: +ASCO500C15 PO; -ASPI-1071 PO; -ATOR20TA66 PO; +CALC-331; -CARV-50 PO; +FAMO-128 PO; +FISH12002 PO; -GABA-532 PO; -LISI-642 PO; +LORA-835 PO; +METO-395 PO; -PRE1T PO; +PRED5TAB PO; -PRED5TAB49 PO; +VITA-134 PO
[2019-05-24 13:33] LABS: BASOPHILS % (AUTO) 0 % (0-1); EOSINOPHILS % (AUTO) 0 % (0-6); HEMATOCRIT 41.8 % (42.0-52.0); HEMOGLOBIN 14.3 g/dl (14.0-17.9); LYMPHOCYTES # (AUTO) 0.4 X10'3 (1.1-4.8); LYMPHOCYTES % (AUTO) 3.7 % (21-51); MEAN CORPUSCULAR HEMOGLOBIN 30.8 PG (27.0-31.0); MEAN CORPUSCULAR HGB CONC 34.3 g/dL (33.0-36.5); MEAN CORPUSCULAR VOLUME 89.7 FL (78-98); MEAN PLATELET VOLUME 7.8 FL (7.4-10.4); MONOCYTES # (AUTO) 0.6 X10'3 (0-0.9); MONOCYTES % (AUTO) 5.6 % (2-12); NEUTROPHILS # (AUTO) 9.1 X10'3 (1.8-7.7); NEUTROPHILS % (AUTO) 90.7 % (42-75); PLATELET COUNT 224 X10'3 (140-440); RED BLOOD COUNT 4.65 X10'6 (4.70-6.10); RED CELL DISTRIBUTION WIDTH 13.8 % (11.5-14.5)
[2019-05-24 13:42] LABS: ALANINE AMINOTRANSFERASE 28 U/L (12-78); ALBUMIN 3.5 G/DL (3.4-5.0); ALBUMIN/GLOBULIN RATIO 1.1 (1.1-1.5); ALKALINE PHOSPHATASE 34 IU/L (46-116); ANION GAP 7 (8-16); ASPARTATE AMINO TRANSFERASE 16 U/L (10-37); BILIRUBIN,TOTAL 0.4 MG/DL (0.1-1.0); BLOOD UREA NITROGEN 24 MG/DL (7-18); BUN/CREATININE RATIO 19.4 (5.4-32.0); CALCIUM 9.1 MG/DL (8.5-10.1); CHLORIDE 107 MMOL/L (99-107); CREATININE 1.24 MG/DL (0.60-1.10); GLUCOSE 163 MG/DL (70-104); POTASSIUM 4.6 MMOL/L (3.5-5.1); SODIUM 140 MMOL/L (135-145); TOTAL CARBON DIOXIDE 26.4 MMOL/L (24-32); TOTAL PROTEIN 6.7 G/DL (6.4-8.2); eGFR 58 ML/MIN
[2019-05-24] MEDS ORDERED: ALBU8.5H8 INH (14:14)
[2019-05-24] MEDS ORDERED: AZIT250T83 PO (14:14)
[2019-05-24] MEDS ORDERED: BENZ-16 PO (14:14)
[2019-05-24 14:24] VITALS: BP 124/61
== END 2019-05-24 14:26 | disposition home or self-care (01) ==
LOC: ER 12:33
DX: R05 Cough (principal); R50.9 Fever, unspecified; R53.83 Other fatigue; R09.81 Nasal congestion; I48.91 Unspecified atrial fibrillation; G47.30 Sleep apnea, unspecified; Z79.01 Long term (current) use of anticoagulants; Z79.899 Other long term (current) drug therapy
CPT/HCPCS: 36415; 71045; 80053; 85025; 99284